=== PATIENT | female | born 1985 | race Caucasian/White ===

== ENCOUNTER 2022-01-27 16:24 | Emergency (ER) | payer OTHER, SELFPAY ==
--- NOTE | ~2022-01-27 | XR_ITS ---
EXAMINATION: XR LUMBOSACRAL SPINE CLINICAL INFORMATION: Lower back pain after fall today COMPARISON: None TECHNIQUE: Three views of the lumbosacral spine. FINDINGS: There is normal lumbar lordosis. The vertebral heights and alignment is normal. There is loss of L5-S1 disc height. Rest of the disc heights are normal. There is no visible acute fracture, dislocation or subluxation seen. There are surgical aaron along the prevertebral soft tissues. XR/XR lumbar spine 2-3V IMPRESSION: Mild degenerative disc changes L5-S1 disc level. No acute fracture or dislocation seen.
[2022-01-27 16:36] VITALS: BP 99/52; PULSE 60; O2SAT 100
[2022-01-27 16:41] VITALS: BMI 29.2
[2022-01-27 16:49] VITALS: BP 104/58; PULSE 67; RESP 18; TEMP 36.9; O2SAT 100
--- NOTE | 2022-01-27 16:50 | ED_ITS ---
HPI - Fall General Chief Complaint: Fall Stated Complaint: fall Time Seen by Provider: 01/27/22 16:45 History of Present Illness HPI Narrative: PATIENT IS A 37-YEAR-OLD FEMALE PRESENTS TODAY AFTER AN ACCIDENTAL FALL. Patient was walking with her knees subsequently accidentally fell. Hit to her lower back area. There is no bowel urinary incontinence. There is no focal weakness. Complaining of pain localized to the area. Patient is not on any blood thinners. Did not hit her head. Did not lose consciousness. Able to move her toes able to bend her knees pain. Pain localized to the back extreme 10/10. Worse with movement. Patient comes home. History of gastric bypass surgery. History of appendectomy status post hysterectomy. No dizziness no diabetes, hypertension, mi in the past. Related Data Previous Rx's Medication Instructions Recorded cyclobenzaprine 10 mg tablet 10 mg PO TID PRN #14 tab 01/27/22 ibuprofen 400 mg tablet 400 mg PO Q6H PRN #20 tab 01/27/22 Allergies Allergy/AdvReac Type Severity Reaction Status Date / Time cephalexin [From KEFLEX] Allergy Unknown NAUSEA & Unverified 05/18/20 16:23 VOMITING acetaminophen [From VICODIN] AdvReac Unknown STOMACH Unverified 05/18/20 16:23 UPSET butalbital [From FIORICET] AdvReac Unknown STOMACH Unverified 05/18/20 16:23 UPSET caffeine [From FIORICET] AdvReac Unknown STOMACH Unverified 05/18/20 16:23 UPSET hydrocodone [From VICODIN] AdvReac Unknown STOMACH Unverified 05/18/20 16:23 UPSET Review of Systems Review of Systems: Positive low back pain no bowel urinary incontinence no focal weakness Yes all other systems are reviewed and are negative [facility] Past Medical History Attestation statement: The following information was validated with the patient. Physical Exam Vital Signs: Vital Signs: Last Vital Signs Temp 98.4 F 01/27/22 16:49 Pulse 67 01/27/22 16:49 Resp 18 01/27/22 16:49 BP 104/58 L 01/27/22 16:49 Pulse Ox 100 01/27/22 16:49 BMI result Body Mass Index 29.2 Appearance: Alert. Oriented X3. No acute distress. Eyes: Pupils equal, round and reactive to light. ENT: Pharynx normal. Neck: Normal inspection. Neck supple. No lymph nodes noted. No crepitus CVS: Normal heart rate and rhythm. Pulses normal. Normal S1 and S2 Respiratory: No respiratory distress. Breath sounds normal. No Wheezing. No rales Abdomen: Soft and nontender. No rigidity. No distention. good BS x4 Examination of the back showed no point spinal tenderness. Positive paraspinal tenderness bilaterally no gross step-off noted. Distal sensation intact pulses 2+ at dorsalis pedis bilaterally able to flex her hip able to bend her knees able to move her toes bilaterally without any difficulties. Skin was intact. Skin: Skin warm and dry. Normal skin color. Normal skin turgor. Extremities: No lower extremity edema. Neurovascular intact to all extremities. No Lacerations. No Rash Neuro: Oriented X 3. No motor deficit. No sensory deficit. Moving all extermities. No slurred speech MDM - Fall MDM Narrative Medical decision making narrative: X-ray showed no acute evidence of fracture. Pain improved with pain medication. No bowel urinary incontinence no focal weakness to suggest cauda cassandra syndrome. Will discharge patient Medical Records Attestation: I reviewed the patient's medical records. Lab Data Attestation: I reviewed the patient's lab results. Discharge Plan Discharge Clinical Impression: Back pain Patient Disposition: Home, Self-Care Instructions: Acute Low Back Pain (ED) Prescriptions: New cyclobenzaprine 10 mg tablet 10 mg PO TID PRN (Reason: pain) Qty: 14 0RF ibuprofen 400 mg tablet 400 mg PO Q6H PRN (Reason: pain) Qty: 20 0RF Referrals: Physician,Unknown J [Physician] - (Warm soak rest follow-up on an outpatient basis with her primary physician)
[2022-01-27] MEDS: HYDROmorphone HCl 0.5 MG/0.5 ML SYRINGE IVPUSH (17:25)
[2022-01-27] MEDS: Ketorolac Tromethamine 30 MG/ML VIAL IVPUSH (17:25)
[2022-01-27] MEDS: ondansetron HCL 4 MG/2 ML VIAL IVPUSH (17:25)
== END 2022-01-27 18:31 | disposition home or self-care (01) ==
LOC: HO.ED 18:31
PROVIDERS: Emergency Provider Emergency Medicine Emergency Medical Services
DX: M54.50 Low back pain, unspecified (principal); Z79.899 Other long term (current) drug therapy
CPT/HCPCS: 72100; 96374; 96375; 99283; 99284; J1170; J1885; J2405